=== PATIENT | female | born 1970 | race African-American/Black ===

== ENCOUNTER 2021-05-03 22:29 | Emergency (ER) | payer SELFPAY ==
[~2021-05-03] VITALS: Ht 154.9 cm; Wt 151.0 kg
[2021-05-03] MEDS ORDERED: GOLYTELY SOLU4000 M1 PO (22:34)
== END 2021-05-04 02:15 | disposition home or self-care (01) ==
LOC: ER 22:34
DX: K59.00 Constipation, unspecified (principal); I10 Essential (primary) hypertension; J44.9 Chronic obstructive pulmonary disease, unspecified; Z86.73 Personal history of transient ischemic attack (TIA), and cerebral infarction without residual deficits; D64.9 Anemia, unspecified
CPT/HCPCS: 99282